=== PATIENT | female | born 1955 | race Caucasian/White ===

== ENCOUNTER 2020-11-26 21:03 | Outpatient (REF) | payer MEDICARE, BC, SELFPAY ==
[2020-11-26 22:25] LABS: Calculated LDL 153 mg/dL (<100); Cholesterol 241 mg/dL (<200); HDL Cholesterol 71 mg/dL (40-60); Triglyceride 89 mg/dL (<150)
== END 2020-11-26 21:04 | disposition home or self-care (01) ==
LOC: NCHCN 21:03
PROVIDERS: PCP Family Medicine; Visit Provider Family Medicine
DX: Z13.220 Encounter for screening for lipoid disorders (principal)
CPT/HCPCS: 80061

== ENCOUNTER 2025-03-21 22:25 | Outpatient (REF) | payer MEDICARE, SELFPAY ==
[2025-03-21 22:08] LABS: Anion Gap 9.9 mmol/L (3-11); BUN 15 mg/dL (7-18); CO2 26.1 mmol/L (21.0-32.0); CREATININE 0.8 mg/dL (0.55-1.02); Calcium 9.1 mg/dL (8.5-10.1); Chloride 105 mmol/L (98-107); Estimated GFR 78.24 (mL/min/1.73m2); Glucose 124 mg/dL (74-106); Potassium 4.1 mmol/L (3.5-5.1); Sodium 141 mmol/L (136-145); Uric Acid 4.1 mg/dL (2.6-6.0)
[2025-03-21 22:10] LABS: COMMENT (LAB VIEW ONLY) 155.54 mg/dL; Microalb ug/mg Crea 9.3 ug/mg Cr
[2025-03-21 22:26] LABS: Calculated LDL 143 mg/dL (<100); Cholesterol 240 mg/dL (<200); HDL Cholesterol 70 mg/dL (>or=50); Triglyceride 138 mg/dL (<150)
== END 2025-03-21 22:26 | disposition home or self-care (01) ==
LOC: NCHCN 22:25
PROVIDERS: PCP Family Medicine; Visit Provider Family Medicine
DX: E11.9 Type 2 diabetes mellitus without complications (principal)
CPT/HCPCS: 80048; 80061; 82043; 82570; 84550